=== PATIENT | male | born 1960 | race Caucasian/White ===

== ENCOUNTER 2021-11-14 05:38 | Outpatient (CLI) | payer BC ==
[~2021-11-14] VITALS: Ht 185 cm; Wt 97.7 kg
[~2021-11-14 05:38] MED LIST: ACHYD1T PO; ALPR1TAB7 PO; ASPI-1238 PO; DILT120C88 PO; DILT180C67 PO; ESCI-2 PO; LISI20TA26 PO; MTP25TSR PO; TRM50T PO
[2021-11-14] MEDS ORDERED: HYDR-3820 PO (12:52)
[2021-11-14] MEDS ORDERED: DULO60CA7 PO (12:52)
[2021-11-14] MEDS ORDERED: TMSL.4C PO (12:52)
[2021-11-14] MEDS ORDERED: GABA300C PO (12:52)
[2021-11-14] MEDS ORDERED: FINA5TAB6 PO (12:52)
[2021-11-14] MEDS ORDERED: LISI20TA26 PO (12:52)
[2021-11-14] MEDS ORDERED: TRM50T PO (12:52)
== END 2021-11-14 13:10 | disposition home or self-care (01) ==
LOC: PREOP 05:38
PROVIDERS: ATTEND Specialist
DX: Z01.818 Encounter for other preprocedural examination (principal)

== ENCOUNTER 2021-11-24 06:44 | Day surgery (SDC) | payer BC ==
[~2021-11-24] VITALS: Ht 185 cm; Wt 97.7 kg
[~2021-11-24 06:44] MED LIST changes: +DULO60CA7 PO; +FINA5TAB6 PO; +GABA300C PO; +HYDR-3820 PO; +TMSL.4C PO
[2021-11-24] MEDS ORDERED: LIDOCAINE PF 1% 2 ML VIAL IR PRN (07:00)
[2021-11-24] MEDS ORDERED: POVIDONE (BETADINE) OPHTH SOLN 5% 30 ML OP ONE (07:00)
[2021-11-24] MEDS ORDERED: MOXIFLOXACIN OPHTH SOLN 5 MG/ML 0.3 ML SYRINGE OP ONE (07:00)
[2021-11-24] MEDS ORDERED: TIMOLOL MALEATE 0.5% 5 ML (TIMOPTIC) BTL OU PRN (07:00)
[2021-11-24] MEDS: TETRACAINE 0.5% OPHTH SOLN 4 ML BTL (SINGLE DOSE ONLY) OU PRN ×4 (07:07→07:26)
[2021-11-24] MEDS ORDERED: MIDAZOLAM 2 MG/2 ML (VERSED) VIAL ONE (07:11)
[2021-11-24] MEDS: PHENYLEPHRINE 10% OPHTH (NEO-SYN) 5 ML BTL OU SCH ×3 (07:14→07:26)
[2021-11-24] MEDS: TROPICAMIDE 1% OPH SOLN (MYDRIACYL) 15 ML BTL OP SCH ×3 (07:14→07:26)
[2021-11-24 07:29] VITALS: BP 127/82
--- NOTE | 2021-11-24 08:34 | Ophthalmologist Pre-Op Note ---
Pre-Operative Progress Note H&P Reviewed The H&P was reviewed, patient examined and no changes noted. Date H&P Reviewed: Nov 24, 2021 Time H&P Reviewed: 08:00 Pre-Op Dx Cataract, Right Eye JENNIFER BUSTOS MD Nov 24, 2021 08:34
--- NOTE | 2021-11-24 08:34 | Ophthalmology Operative Report ---
Cataract removal/placement IOL PREOPERATIVE DIAGNOSIS: Cataract Right Eye POSTOPERATIVE DIAGNOSIS: Cataract Right Eye PROCEDURE: Cataract removal and placement of posterior chamber implant, right eye SURGEON: Marcelino Bustos ANESTHESIA: Topical with sedation COMPLICATIONS: None ESTIMATED BLOOD LOSS: Minimal DESCRIPTION OF PROCEDURE: After proper informed consent was obtained, the patient, a 61 male, was taken to the Operating Room and the right eye was anesthetized with tetracaine. The right eye was then prepped and draped in the usual manner. A wire lid speculum was placed. A paracentesis was made at the left hand position. Preservative free lidocaine was injected into the anterior chamber followed by viscoelastic. A clear corneal incision was made in the temporal position. A capsulorrhexis was preformed and the central nuclear and cortical material were removed. The posterior capsule was polished and Dakota [id number] 11.5 IOL was placed into the capsular bag. The residual viscoelastic was aspirated and balanced saline solution was injected into the anterior chamber. Moxifloxacin was injected into the anterior chamber. The wound was checked and found to be water tight. The patient tolerated the procedure well without complications. MARCELINO BUSTOS MD Nov 24, 2021 08:34
[2021-11-24 08:36] VITALS: BP 115/75
[2021-11-24] MEDS ORDERED: acetaZOLAMIDE ER 500 MG CAP (DIAMOX SEQUELS) PO ONE (10:00)
--- NOTE | 2021-11-24 13:42 | Anesthesia-General Post-Op ---
MAC Patient Condition Mental Status/LOC: Same as Preop Cardiovascular: Satisfactory Nausea/Vomiting: Absent Respiratory: Satisfactory Pain: Controlled Complications: Absent Post Op Complications Complications None Follow Up Care/Instructions Patient Instructions None needed. Anesthesiology Discharge Order Discharge Order Patient is doing well, no complaints, stable vital signs, no apparent adverse anesthesia problems. No complications reported per nursing. MARIA R CORTEZ CRNA Nov 24, 2021 13:42
== END 2021-11-24 08:43 | disposition home or self-care (01) ==
LOC: SDC 06:44
PROVIDERS: ATTEND Specialist
DX: H25.9 Unspecified age-related cataract (principal); Z87.891 Personal history of nicotine dependence; Z88.0 Allergy status to penicillin
CPT/HCPCS: 66984; V2632

== ENCOUNTER 2021-12-05 05:34 | Outpatient (CLI) | payer BC | END 2021-12-05 08:25 | disposition home or self-care (01) | LOC: PREOP 05:34 | PROVIDERS: ATTEND Specialist | DX: Z01.818 Encounter for other preprocedural examination (principal) ==

== ENCOUNTER 2021-12-08 06:53 | Day surgery (SDC) | payer BC ==
[~2021-12-08] VITALS: Ht 185 cm; Wt 97.7 kg
[2021-12-08] MEDS: TETRACAINE 0.5% OPHTH SOLN 4 ML BTL (SINGLE DOSE ONLY) OU PRN ×4 (07:11→07:31)
[2021-12-08] MEDS ORDERED: POVIDONE (BETADINE) OPHTH SOLN 5% 30 ML OP ONE (07:15)
[2021-12-08] MEDS ORDERED: MOXIFLOXACIN OPHTH SOLN 5 MG/ML 0.3 ML SYRINGE OP ONE (07:15)
[2021-12-08] MEDS ORDERED: TIMOLOL MALEATE 0.5% 5 ML (TIMOPTIC) BTL OU PRN (07:15)
[2021-12-08 07:17] VITALS: BP 140/79
[2021-12-08] MEDS: PHENYLEPHRINE 10% OPHTH (NEO-SYN) 5 ML BTL OU SCH ×3 (07:20→07:31)
[2021-12-08] MEDS: TROPICAMIDE 1% OPH SOLN (MYDRIACYL) 15 ML BTL OP SCH ×3 (07:21→07:32)
[2021-12-08] MEDS ORDERED: MIDAZOLAM 2 MG/2 ML (VERSED) VIAL ONE (07:44)
--- NOTE | 2021-12-08 07:46 | Ophthalmologist Pre-Op Note ---
Pre-Operative Progress Note H&P Reviewed The H&P was reviewed, patient examined and no changes noted. Date H&P Reviewed: Dec 08, 2021 Time H&P Reviewed: 07:46 Pre-Op Dx Cataract, Left Eye JENNIFER BUSTOS MD Dec 08, 2021 07:46
--- NOTE | 2021-12-08 08:02 | Ophthalmology Operative Report ---
Cataract removal/placement IOL PREOPERATIVE DIAGNOSIS: Cataract Left Eye POSTOPERATIVE DIAGNOSIS: Cataract Left Eye PROCEDURE: Cataract removal and placement of posterior chamber implant, left eye SURGEON: Marcelino Bustos ANESTHESIA: Topical with sedation COMPLICATIONS: None ESTIMATED BLOOD LOSS: Minimal DESCRIPTION OF PROCEDURE: After proper informed consent was obtained, the patient, a 61 male, was taken to the Operating Room and the left eye was anesthetized with tetracaine. The left eye was then prepped and draped in the usual manner. A wire lid speculum was placed. A paracentesis was made at the left hand position. Preservative free lidocaine was injected into the anterior chamber followed by viscoelastic. A clear corneal incision was made in the temporal position. A capsulorrhexis was preformed and the central nuclear and cortical material were removed. The posterior capsule was polished and an [place] [id number] was placed into the capsular bag. The residual viscoelastic was aspirated and balanced saline solution was injected into the anterior chamber. Moxifloxacin was injected into the anterior chamber. The wound was checked and found to be water tight. The patient tolerated the procedure well without complications. MARCELINO BUSTOS MD Dec 08, 2021 08:02
[2021-12-08 08:08] VITALS: BP 125/75
[2021-12-08] MEDS ORDERED: acetaZOLAMIDE ER 500 MG CAP (DIAMOX SEQUELS) PO ONE (10:00)
--- NOTE | 2021-12-08 13:01 | Anesthesia-General Post-Op ---
MAC Patient Condition Mental Status/LOC: Same as Preop Cardiovascular: Satisfactory Nausea/Vomiting: Absent Respiratory: Satisfactory Pain: Controlled Complications: Absent Post Op Complications Complications None Follow Up Care/Instructions Patient Instructions None needed. Anesthesiology Discharge Order Discharge Order Patient is doing well, no complaints, stable vital signs, no apparent adverse anesthesia problems. No complications reported per nursing. DERICK PALMA CRNA Dec 08, 2021 13:01
== END 2021-12-08 08:10 | disposition home or self-care (01) ==
LOC: SDC 06:53
PROVIDERS: ATTEND Specialist
DX: H25.9 Unspecified age-related cataract (principal); Z87.891 Personal history of nicotine dependence; Z88.0 Allergy status to penicillin
CPT/HCPCS: 66984; V2632

== ENCOUNTER 2022-01-17 12:33 | Emergency (ER) | payer BC ==
[~2022-01-17] VITALS: Ht 185 cm; Wt 91.0 kg
[2022-01-17 12:35] VITALS: BP 185/112
--- NOTE | 2022-01-17 12:50 | ED Back Pain ---
General Chief Complaint: Back Problems Stated Complaint: PELVIC PAIN Nursing Triage Note: PT OUT OF CAR W STAFF HELP, PT HAS HAD 4 SPINE SURGERIES, PT STATES HAD CAUDAL INJECTION ON SATURDAY. PT HAS LOWER BACK AND ABDOMINAL PAIN. PT HAS RAN OUT OF HYDROCODONE YESTERDAY AND PCP WONT REFILL PAIN MEDS. PT STATES HAVING DIFFICULTY URINATING PAST WEEK. PT STATES NOT SLEEPING, EATING AND FEELS LIKE IS GETTING WEAKER. Source of Information: Patient Exam Limitations: No Limitations History of Present Illness Date Seen by Provider: Jan 17, 2022 Time Seen by Provider: 12:30 Initial Comments 61-year-old male with past medical history of chronic low back pain coming in due to low back pain and suprapubic discomfort with dysuria. Has had multiple spinal surgeries in the past year with the most recent being many months ago. Since then he has had a normal MRI. Back pain has been chronic, and he ran out of his hydrocodone from taking too many of them this week. Has been out of them since yesterday and they are unable to refill for roughly 1 more week. He says he has prostate issues and has had difficulty urinating the past week with burning with urination. Says due to the pain he is having difficulty sleeping and eating. He had a caudal injection on Saturday and was told pain will likely be worse for a little bit due to the injection. Denies any fever, chest pain, nausea, vomiting, diarrhea, focal weakness or numbness, or any other concerns. Had a normal bowel movement this morning without difficulty. Allergies and Home Medications Allergies Coded Allergies: Penicillins (Verified Allergy, Severe, ANAPHYLAXIS, 07/07/15) anaphylaxis reaction as a child was advised to not ever use this medication again. Patient Home Medication List Home Medication List Reviewed: Yes Alprazolam (Alprazolam) 1 Mg Tablet, 1 MG PO DAILY, (Reported) Entered as Reported by: SHANA PIERCE on 07/07/15 192 Duloxetine HCl (Cymbalta) 60 Mg Capsule.dr, 60 MG PO DAILY, (Reported) Entered as Reported by: JOSUE TADEO on 11/14/21 125 Finasteride (Finasteride) 5 Mg Tablet, 5 MG PO DAILY, (Reported) Entered as Reported by: JOSUE TADEO on 11/14/21 1252 Gabapentin (Neurontin) 300 Mg Capsule, 300 MG PO TID, (Reported) Entered as Reported by: JOSUE TADEO on 11/14/21 1252 Hydrocodone/Acetaminophen (Hydrocodone-Acetamin 10-325 mg) 10 Mg-325 Mg Tablet, 1 EACH PO TID, (Reported) Entered as Reported by: JOSUE TADEO on 11/14/21 125 Lisinopril (Lisinopril) 20 Mg Tablet, 20 MG PO DAILY, (Reported) Entered as Reported by: JOSUE TADEO on 11/14/21 125 Tamsulosin HCl (Flomax) 0.4 Mg Cap, 0.4 MG PO DAILY, (Reported) Entered as Reported by: JOSUE TADEO on 11/14/21 125 Tramadol HCl (Tramadol HCl) 50 Mg Tablet, 50 MG PO Q4H PRN for PAIN- BREAKTHROUGH, (Reported) Entered as Reported by: JOSUE TADEO on 11/14/21 1252 Review of Systems Constitutional: No fever EENTM: No blurred vision Respiratory: No cough Cardiovascular: No chest pain Gastrointestinal: No nausea, No vomiting Genitourinary: dysuria Musculoskeletal: see HPI Skin: no symptoms reported Psychiatric/Neurological: No Symptoms Reported All Other Systems Reviewed Negative Unless Noted: Yes Past Angvoui-Rdigek-Npdfvg Hx Patient Social History Tobacco Use?: No Substance use?: Yes Substance type: Marijuana Alcohol Use?: No Pt feels they are or have been: No Immunizations Up To Date First/Initial COVID19 Vaccinat: 2020 Second COVID19 Vaccination Ruddy: 2020 Past Medical History Surgery/Hospitalization HX: BACK SURGERIES, R EYE IMPLANT, PROSTRATE PROBLEMS Surgeries: Yes Pneumonia Currently Using CPAP: No Currently Using BIPAP: No High Cholesterol, Hypertension Reproductive Disorders: No Benign Prostatic Hyperpl Gastroesophageal Reflux Arthritis Anxiety, Depression Adverse Reaction/Blood Tranf: No Family Medical History Hypertension Physical Exam Vital Signs Vital Signs - First Documented 01/17/22 12:35 Temp 36.0 Pulse 116 Resp 18 B/P (MAP) 185/112 (136) Pulse Ox 99 Capillary Refill : Less Than 3 Seconds Height, Weight, BMI Height: 6'" Weight: 230lbs. 8.6oz. 104.255275hk; 61.00 BMI Method: General Appearance: No Apparent Distress, WD/WN HEENT: PERRL/EOMI, Normal ENT Inspection, Pharynx Normal Neck: Full Range of Motion, Normal Inspection, Non Tender, Supple Cardiovascular: No Edema, Normal Peripheral Pulses, Tachycardia Respiratory: Chest Non Tender, Lungs Clear, Normal Breath Sounds, No Accessory Muscle Use, No Respiratory Distress Gastrointestinal: Normal Bowel Sounds, Non Tender, Soft; No Distended, No Guarding Back: Normal Inspection, No CVA Tenderness, No Vertebral Tenderness, Other (Paravertebral tenderness in the lower back, negative straight leg test, normal distal sensation and) Extremity: Normal Capillary Refill, Normal Inspection, Normal Range of Motion, Non Tender, No Calf Tenderness, No Pedal Edema Neurologic/Psychiatric: Alert ( strength), No Motor/Sensory Deficits, Normal Mood/Affect Skin: Normal Color, Warm/Dry Lymphatic: No Adenopathy Progress/Results/Core Measures Results/Orders Lab Results Laboratory Tests Test 01/17/22 13:08 01/17/22 14:56 Range/Units Urine Color YELLOW Urine Clarity CLEAR Urine pH 6.5 5-9 Urine Specific [place] 1.015 L 1.016-1.022 Urine Protein NEGATIVE NEGATIVE Urine Glucose (UA) NEGATIVE NEGATIVE Urine Ketones NEGATIVE NEGATIVE Urine Nitrite NEGATIVE NEGATIVE Urine Bilirubin NEGATIVE NEGATIVE Urine Urobilinogen 0.2 < = 1.0 MG/DL Urine Leukocyte Esterase NEGATIVE NEGATIVE Urine RBC (Auto) TRACE-I H NEGATIVE Urine RBC NONE /HPF Urine WBC NONE /HPF Urine Squamous Epithelial Cells RARE /HPF Urine Crystals NONE /LPF Urine Bacteria NEGATIVE /HPF Urine Casts PRESENT /LPF Urine Hyaline Casts 0-2 H /LPF Urine Mucus SMALL H /LPF Urine Culture Indicated NO White Blood Count 12.9 H 4.3-11.0 10^3/uL Red Blood Count 4.31 4.30-5.52 10^6/uL Hemoglobin 10.5 L 13.3-17.7 g/dL Hematocrit 33 L 40-54 % Mean Corpuscular Volume 78 L 80-99 fL Mean Corpuscular Hemoglobin 24 L 25-34 pg Mean Corpuscular Hemoglobin Concent 31 L 32-36 g/dL Red Cell Distribution Width 17.2 H 10.0-14.5 % Platelet Count 648 H 130-400 10^3/uL Mean Platelet Volume 9.2 9.0-12.2 fL Immature Granulocyte % (Auto) 0 % Neutrophils (%) (Auto) 74 42-75 % Lymphocytes (%) (Auto) 15 12-44 % Monocytes (%) (Auto) 11 0-12 % Eosinophils (%) (Auto) 0 0-10 % Basophils (%) (Auto) 0 0-10 % Neutrophils # (Auto) 9.6 H 1.8-7.8 10^3/uL Lymphocytes # (Auto) 1.9 1.0-4.0 10^3/uL Monocytes # (Auto) 1.4 H 0.0-1.0 10^3/uL Eosinophils # (Auto) 0.0 0.0-0.3 10^3/uL Basophils # (Auto) 0.0 0.0-0.1 10^3/uL Immature Granulocyte # (Auto) 0.0 0.0-0.1 10^3/uL Erythrocyte Sedimentation Rate 94 H 0-30 MM/HR Prothrombin Time 14.1 12.2-14.7 SEC INR Comment 1.0 0.8-1.4 Activated Partial Thromboplast Time 37 H 24-35 SEC Sodium Level 142 135-145 MMOL/L Potassium Level 3.8 3.6-5.0 MMOL/L Chloride Level 106 98-107 MMOL/L Carbon Dioxide Level 24 21-32 MMOL/L Anion Gap 12 5-14 MMOL/L Blood Urea Nitrogen 11 7-18 MG/DL Creatinine 0.70 0.60-1.30 MG/DL Estimat Glomerular Filtration Rate 104 BUN/Creatinine Ratio 16 Glucose Level 93 70-105 MG/DL Calcium Level 9.3 8.5-10.1 MG/DL C-Reactive Protein High Sensitivity 4.12 H 0.00-0.50 MG/DL My Orders Orders - ROSALIA CANDELARIA MD Hydrocodone/Apap 10/325 Tablet (Lortab 1 (01/17/22 13:00) Ua Culture If Indicated (01/17/22 12:51) Ct Abd/Pelvis Wo(Kidney Stone) (01/17/22 13:34) Basic Metabolic Panel (01/17/22 14:28) Cbc With Automated Diff (01/17/22 14:28) Hs C Reactive Protein (01/17/22 14:28) Protime With Inr (01/17/22 14:28) Partial Thromboplastin Time (01/17/22 14:28) Erythrocyte Sedimentation Rate (01/17/22 14:28) Mri Lumbar Spine W/Wo Contrast (01/17/22 14:28) Morphine Injection (Morphine Injection (01/17/22 15:04) Gadoterate Inj (Radiology) (Clariscan In (01/17/22 15:30) Vancomycin Injection (Vancomycin Injecti (01/17/22 16:14) Vancomycin Injection (Vancomycin Injecti (01/17/22 16:30) Hydrocodone/Apap 10/325 Tablet (Lortab 1 (01/17/22 18:15) Medications Given in ED Current Medications Medications Dose Ordered Sig/Renato Route Start Time Stop Time Status Last Admin Dose Admin Acetaminophen/ Hydrocodone Bitart 1 ea ONCE ONCE PO 01/17/22 13:00 01/17/22 13:01 DC 01/17/22 13:08 1 EA Gadoterate Meglumine 20 ml ONCE ONCE IV 01/17/22 15:30 01/17/22 15:31 DC 01/17/22 15:37 18 ML Vital Signs/I&O 01/17/22 12:35 Temp 36.0 Pulse 116 Resp 18 B/P (MAP) 185/112 (136) Pulse Ox 99 Blood Pressure Mean: 136 Progress Progress Note : Progress Note 61-year-old male with above history coming in due to back pain. ABCs were intact and vitals were stable on presentation although he is tachycardic. He does have some low back pain on exam but a nonfocal neuro exam. Postvoid residual is 0. He has some dysuria so urinalysis was obtained which does have a little bit of blood in it. Given the back pain we will do a CT abdomen pelvis without contrast to assess for other etiologies of the pain such as kidney stones. This was negative for kidney stone but does show edema and possible infection in his lumbar spine so MRI was ordered. This was concerning for osteomyelitis/discitis and spinal epidural abscess. I then contacted [facility] where his surgery was done immediately and ordered him IV vancomycin. His CRP is elevated just under 5 and ESR elevated around 94. White blood count also elevated around 13. I contacted [facility] in [place] for transfer and they are awaiting callback from their hospitalist. The patient also contacted his surgeon's office, and I then paged them to discuss the case with the surgeon on-call. He also recommended admission to the hospitalist. Diagnostic Imaging Diagonstic Imaging: CT (abd/pelvis), MRI (lumbar spine with and without contrast) Comments NAME: ANUJ GARCIA [facility] REC#: [id number] PT STATUS: REG ER : 1960 PHYSICIAN: ROSALIA CANDELARIA MD ADMIT DATE: 01/17/22/ER Signed Date of Exam:01/17/22 MRI LUMBAR SPINE W/WO CONTRAST PROCEDURE: MRI lumbar spine with and without contrast. TECHNIQUE: Multiplanar, multisequence MRI of the lumbar spine was performed with and without contrast. INDICATION: Low back pain. Prior spine surgery. COMPARISON: CT performed the same date. FINDINGS: 5 lumbar type vertebral bodies are visualized with the last well-formed disc space designated L5-S1. There is bone marrow edema with associated enhancement involving the L4-L5 disc space with extension into the disc, itself. There is endplate irregularity at the L4-L5 level. Fluid is seen within the disc space. There is grade 1 anterolisthesis of L4 on L5. Prior laminectomy is seen at L3 and L4. A peripherally enhancing fluid collection is seen within the laminectomy bed measuring 2.4 x 1.2 cm. A smaller fluid collection is seen right of this larger collection measuring 1.3 x 1.1 cm. There is extension of soft tissue enhancement into the spinal canal from the L4 to S1 level. At the S1 level, left of midline, a peripherally enhancing fluid collection is seen measuring 0.6 x 0.5 cm and 1.9 cm craniocaudal. There is also edema involving the bilateral psoas musculature at the L4 and L5 levels. No evidence of discrete abscess within the psoas muscles. No acute fracture is seen in the lumbar spine. The conus terminates at the L1 level. No masses are seen associated with the conus or nerve roots of the cauda equina. IMPRESSION: 1. Findings consistent with osteomyelitis/discitis at the L4-L5 level. 2. Soft tissue abscesses in the laminectomy bed at the L4-L5 level. There is extension of phlegmon and enhancement into the spinal canal at this level. 3. Likely epidural abscess at the S1 level left of midline. 4. Edema in the bilateral psoas muscles at the L4 and L5 levels. No evidence of psoas abscess at this time. Dictated by: Dictated on workstation # [id number] Dict: 01/17/22 1546 Trans: 01/17/22 1606 [facility] [id number] Interpreted by: ADEN POPE DO Electronically signed by: ADEN POPE DO 01/17/22 1606 [facility] [place], [place] NAME: ANUJ GARCIA [facility] REC#: [id number] PT STATUS: REG ER : 1960 PHYSICIAN: ROSALIA CANDELARIA MD ADMIT DATE: 01/17/22/ER Signed Date of Exam:01/17/22 CT ABD/PELVIS WO(KIDNEY STONE) EXAMINATION: CT abdomen and pelvis without contrast. TECHNIQUE: Multiple contiguous axial images were obtained through the abdomen and pelvis without the use of intravenous contrast. All CT scans use one or more of the following dose optimizing techniques: automated exposure control, MA and/or KvP adjustment based on patient size and exam type or iterative reconstruction. HISTORY: Flank pain, kidney stone suspected COMPARISON: None available. FINDINGS: Lung bases: The lung bases are clear. Solid organs: The liver is normal. The gallbladder is normal. There is no biliary ductal dilation. Pancreas is normal. Spleen is normal. Adrenal glands are normal. The kidneys are normal without visualized calculus or hydronephrosis. Bowel: There is a moderate hiatal hernia. No bowel obstruction. There is a moderate amount of stool seen throughout the colon. No findings of acute appendicitis. Peritoneum: There is retroperitoneal fat stranding anterior to the lumbar spine. No loculated fluid collection or free air. No suspicious lymphadenopathy. Vasculature: Calcification of the aorta without aneurysm. Musculoskeletal: There are severe degenerative changes involving the L4-L5 endplates at the L4-L5 disc space. There is grade 1 anterolisthesis of L4 on L5. There is abnormal soft tissue inflammation anterior and posterior to the vertebral body at this location. Surgical changes from posterior laminectomy at L3-L4 and L4-L5. There is abnormal soft tissue edema seen within the posterior back soft tissues. Within the laminectomy bed there is mild amount of fluid and edema. Pelvis: The prostate gland is normal. The urinary bladder is normal. IMPRESSION: 1. Abnormal degenerative changes focally at L4-L5 with involvement of the endplates and disc space. There is abnormal soft tissue edema seen anterior and posterior to this level likely involvement of the laminectomy bed. These findings are highly concerning for discitis osteomyelitis in the appropriate clinical setting. 2. No visualized renal calculus or hydronephrosis. Dictated by: Dictated on workstation # [id number] Dict: 01/17/22 1403 Trans: 01/17/[address] [facility] [id number] Interpreted by: NEIL MANZO DO Electronically signed by: NEIL MANZO DO 01/17/22 1428 Departure Impression Primary Impression: Discitis Qualified Codes: M46.46 - Discitis, unspecified, lumbar region Additional Impression: Spinal epidural abscess Disposition: XFER SHT-TRM HOSP Condition: Stable Admissions Decision to Admit/Date: Jan 17, 2022 Time/Decision to Admit Time: 16:20 Transfer Transfer Reason: Exceeds level of care Transfer Progress Notes Called [facility] at 16:20, awaiting callback. Called back again 17:10, and they are paging the hospitalist a second time. Called the [place] [id number] state surgeon operations dispatcher at 17:35, Dr. Díaz, who relayed the story to the patient's spine surgeon Dr. Burgess. They recommended admission to the hospitalist at [facility]. Called back [facility] transfer line again and am awaiting a callback. Dr. Lala accepted the patient for transfer at 17:55. Awaiting bed placement before transfer. Transfer Facility: [facility] Method of Transfer: EMS Departure-Patient Inst. Referrals: JUAREZ FORREST DO (PCP/Family) Primary Care Physician ROSALIA CANDELARIA MD Jan 17, 2022 12:50
[2022-01-17 13:13] LABS: BILIRUBIN,URINE NEGATIVE (NEGATIVE); CLARITY,URINE CLEAR; COLOR,URINE YELLOW; GLUCOSE, URINE (UA) NEGATIVE (NEGATIVE); KETONES,URINE NEGATIVE (NEGATIVE); LEUKOCYTE ESTERASE ,URINE NEGATIVE (NEGATIVE); NITRITE,URINE NEGATIVE (NEGATIVE); PH,URINE 6.5 (5-9); PROTEIN,URINE NEGATIVE (NEGATIVE)
[2022-01-17 13:27] LABS: BACTERIA,URINE NEGATIVE /HPF; HYALINE CASTS, URINE 0-2 /LPF; SQUAMOUS EPITHELIAL CELL,UR RARE /HPF
--- NOTE | 2022-01-17 14:16 | Diagnostic Imaging Report ---
EXAMINATION: CT abdomen and pelvis without contrast. TECHNIQUE: Multiple contiguous axial images were obtained through the abdomen and pelvis without the use of intravenous contrast. All CT scans use one or more of the following dose optimizing techniques: automated exposure control, MA and/or KvP adjustment based on patient size and exam type or iterative reconstruction. HISTORY: Flank pain, kidney stone suspected COMPARISON: None available. FINDINGS: Lung bases: The lung bases are clear. Solid organs: The liver is normal. The gallbladder is normal. There is no biliary ductal dilation. Pancreas is normal. Spleen is normal. Adrenal glands are normal. The kidneys are normal without visualized calculus or hydronephrosis. Bowel: There is a moderate hiatal hernia. No bowel obstruction. There is a moderate amount of stool seen throughout the colon. No findings of acute appendicitis. Peritoneum: There is retroperitoneal fat stranding anterior to the lumbar spine. No loculated fluid collection or free air. No suspicious lymphadenopathy. Vasculature: Calcification of the aorta without aneurysm. Musculoskeletal: There are severe degenerative changes involving the L4-L5 endplates at the L4-L5 disc space. There is grade 1 anterolisthesis of L4 on L5. There is abnormal soft tissue inflammation anterior and posterior to the vertebral body at this location. Surgical changes from posterior laminectomy at L3-L4 and L4-L5. There is abnormal soft tissue edema seen within the posterior back soft tissues. Within the laminectomy bed there is mild amount of fluid and edema. Pelvis: The prostate gland is normal. The urinary bladder is normal. IMPRESSION: 1. Abnormal degenerative changes focally at L4-L5 with involvement of the endplates and disc space. There is abnormal soft tissue edema seen anterior and posterior to this level likely involvement of the laminectomy bed. These findings are highly concerning for discitis osteomyelitis in the appropriate clinical setting. 2. No visualized renal calculus or hydronephrosis. Dictated by: Dictated on workstation # [id number]
[2022-01-17 15:04] LABS: BASOPHILS % (AUTO) 0 % (0-10); EOSINOPHILS % (AUTO) 0 % (0-10); HEMATOCRIT 33 % (40-54); HEMOGLOBIN 10.5 g/dL (13.3-17.7); LYMPHOCYTES # (AUTO) 1.9 10^3/uL (1.0-4.0); LYMPHOCYTES % (AUTO) 15 % (12-44); MEAN CORPUSCULAR HEMOGLOBIN 24 pg (25-34); MEAN CORPUSCULAR HGB CONC 31 g/dL (32-36); MEAN CORPUSCULAR VOLUME 78 fL (80-99); MEAN PLATELET VOLUME 9.2 fL (9.0-12.2); MONOCYTES # (AUTO) 1.4 10^3/uL (0.0-1.0); MONOCYTES % (AUTO) 11 % (0-12); NEUTROPHILS # (AUTO) 9.6 10^3/uL (1.8-7.8); NEUTROPHILS % (AUTO) 74 % (42-75); PLATELET COUNT 648 10^3/uL (130-400); WHITE BLOOD COUNT 12.9 10^3/uL (4.3-11.0)
[2022-01-17] MEDS ORDERED: morphine INJ 10 MG/ML 1ML (SYR OR VIAL) IVP STA (15:04)
[2022-01-17 15:22] LABS: POTASSIUM 3.8 MMOL/L (3.6-5.0)
[2022-01-17 15:23] LABS: CALCIUM 9.3 MG/DL (8.5-10.1)
[2022-01-17 15:28] LABS: CREATININE SERUM 0.7 MG/DL (0.60-1.30)
[2022-01-17] MEDS ORDERED: GADOTERATE 0.5 MMOL/ML (CLARISCAN) 20 ML VIAL IV ONE (15:30)
[2022-01-17 15:34] LABS: ERYTHROCYTE SEDIMENTATION RATE 94 MM/HR (0-30)
[2022-01-17 15:47] LABS: PROTHROMBIN TIME PATIENT 14.1 SEC (12.2-14.7)
--- NOTE | 2022-01-17 16:06 | Diagnostic Imaging Report ---
PROCEDURE: MRI lumbar spine with and without contrast. TECHNIQUE: Multiplanar, multisequence MRI of the lumbar spine was performed with and without contrast. INDICATION: Low back pain. Prior spine surgery. COMPARISON: CT performed the same date. FINDINGS: 5 lumbar type vertebral bodies are visualized with the last well-formed disc space designated L5-S1. There is bone marrow edema with associated enhancement involving the L4-L5 disc space with extension into the disc, itself. There is endplate irregularity at the L4-L5 level. Fluid is seen within the disc space. There is grade 1 anterolisthesis of L4 on L5. Prior laminectomy is seen at L3 and L4. A peripherally enhancing fluid collection is seen within the laminectomy bed measuring 2.4 x 1.2 cm. A smaller fluid collection is seen right of this larger collection measuring 1.3 x 1.1 cm. There is extension of soft tissue enhancement into the spinal canal from the L4 to S1 level. At the S1 level, left of midline, a peripherally enhancing fluid collection is seen measuring 0.6 x 0.5 cm and 1.9 cm craniocaudal. There is also edema involving the bilateral psoas musculature at the L4 and L5 levels. No evidence of discrete abscess within the psoas muscles. No acute fracture is seen in the lumbar spine. The conus terminates at the L1 level. No masses are seen associated with the conus or nerve roots of the cauda equina. IMPRESSION: 1. Findings consistent with osteomyelitis/discitis at the L4-L5 level. 2. Soft tissue abscesses in the laminectomy bed at the L4-L5 level. There is extension of phlegmon and enhancement into the spinal canal at this level. 3. Likely epidural abscess at the S1 level left of midline. 4. Edema in the bilateral psoas muscles at the L4 and L5 levels. No evidence of psoas abscess at this time. Dictated by: Dictated on workstation # [id number]
[2022-01-17] MEDS ORDERED: VANCOMYCIN INJECTION 2,000 MG in NS IV 500 ML 500 ML IV STA (16:14)
[2022-01-17] MEDS ORDERED: VANCOMYCIN 2000 MG/NS 500 ML IVPB IV NR ×2 (16:30)
== END 2022-01-17 23:37 | disposition short-term general hospital (02) ==
LOC: EDUNIT# 12:33 → ER 12:36
DX: M46.46 Discitis, unspecified, lumbar region (principal); G06.1 Intraspinal abscess and granuloma; D72.829 Elevated white blood cell count, unspecified; R79.82 Elevated C-reactive protein (CRP); R70.0 Elevated erythrocyte sedimentation rate; R30.0 Dysuria; R00.0 Tachycardia, unspecified; Z98.890 Other specified postprocedural states
CPT/HCPCS: 36415; 72158; 74176; 80048; 81000; 85025; 85610; 85652; 85730; 86141